=== PATIENT | male | born 1980 | race Caucasian/White ===

== ENCOUNTER 2020-02-07 15:03 | Emergency (ER) | payer MEDICAID ==
[~2020-02-07] VITALS: Ht 172.7 cm; Wt 95.3 kg
[2020-02-07 15:20] VITALS: BP 124/75
[2020-02-07 15:51] VITALS: BP 115/76
== END 2020-02-07 15:51 | disposition home or self-care (01) ==
LOC: MED 15:03
DX: L03.314 Cellulitis of groin (principal)
CPT/HCPCS: 99283

== ENCOUNTER 2020-04-30 08:00 | Emergency (ER) | payer MEDICAID, SELFPAY ==
[~2020-04-30] VITALS: Ht 172.7 cm; Wt 99.8 kg
[2020-04-30 08:12] VITALS: BP 144/78
--- NOTE | 2020-04-30 08:18 | NUR ---
PT AMBULATED TO BED 9 WITH STEADY GAIT
--- NOTE | 2020-04-30 08:27 | NUR ---
XRAY AT BEDSIDE .
[2020-04-30] MEDS ORDERED: KETOROLAC 30 MG/ML VIAL ONE (08:39)
[2020-04-30] MEDS ORDERED: KETOROLAC 30 MG/ML VIAL IM ONE (08:40)
--- NOTE | 2020-04-30 08:45 | NUR ---
DR SNELL AT BEDSIDE EVALUATING PT.
--- NOTE | 2020-04-30 08:49 | NUR ---
C/O SOB, FATIGUE, COUGH, FEVER, AND LOOSE STOOLS X 2 -3 DAYS DENIES N/V, BROOKE, OR BODYACHES , PT AOX4 , AFIBRILE , AMBULATORY WITH STEADY GAIT, SCE , FLAT SOFT NABS. HX--DENIES RX--NONE
--- NOTE | 2020-04-30 08:51 | NUR ---
COVID 19 SWAB DONE.
--- NOTE | 2020-04-30 08:58 | NUR ---
PT COMFORTABLE IN BED SIDE RAILS UP X1 AND LOCK TO LOWEST POSITION.
--- NOTE | 2020-04-30 09:08 | NUR ---
PT RESTING IN BED GAVE WATER ,ORANGE JUICE AND CRACKERS .
[2020-04-30 10:09] VITALS: BP 144/78
--- NOTE | 2020-04-30 10:10 | NUR ---
Patient discharged with v/s stable. Written and verbal after care instructions given and explained acute bronchitis. Patient alert, oriented and verbalized understanding of instructions. Ambulatory with steady gait. All questions addressed prior to discharge. ID band removed. Patient advised to follow up with PMD. Rx of azithromycin and acetaminophen given. Patient educated on indication of medication including possible reaction and side effects. Opportunity to ask questions provided and answered. Excuse from work given.
== END 2020-04-30 10:10 | disposition home or self-care (01) ==
LOC: MED 08:00 → EEVIPCON 08:00 → MED 10:10
DX: J20.9 Acute bronchitis, unspecified (principal); Z20.828 Contact with and (suspected) exposure to other viral communicable diseases; I10 Essential (primary) hypertension; F17.210 Nicotine dependence, cigarettes, uncomplicated; Z98.890 Other specified postprocedural states
CPT/HCPCS: 71045; 96372; 99284; J1885; Q0092; U0003

== ENCOUNTER 2020-05-14 07:47 | Emergency (ER) | payer MEDICAID, SELFPAY ==
[~2020-05-14] VITALS: Ht 172.7 cm; Wt 99.8 kg
[2020-05-14 08:09] VITALS: BP 126/89
--- NOTE | 2020-05-14 08:13 | NUR ---
WAIT AT TENT. VSS.
--- NOTE | 2020-05-14 08:14 | NUR ---
C/O FEVER,COUGH,BODYACHE X2 DAYS. COVID TESTED HERE 04/30/20 STILL PENDING. TEMP 97.7, P 80, R 22, O2 SAT 97%, BP 126/89 AT THIS TIME. MED HX: DENIES
--- NOTE | 2020-05-14 08:48 | NUR ---
COVID TEST DONE.
[2020-05-14 08:51] VITALS: BP 126/89
--- NOTE | 2020-05-14 08:51 | NUR ---
Patient discharged with v/s stable. Written and verbal after care instructions given and explained. Patient verbalized understanding. Ambulatory with steady gait. All questions addressed prior to discharge. Advised to follow up with PMD.
== END 2020-05-14 08:51 | disposition home or self-care (01) ==
LOC: EEVIPCON 07:47 → MED 07:47
DX: M79.10 Myalgia, unspecified site (principal); Z20.828 Contact with and (suspected) exposure to other viral communicable diseases
CPT/HCPCS: 99283; U0003